=== PATIENT | male | born 1975 ===

== ENCOUNTER 2018-05-07 11:58 | Emergency (ER) | payer OTHER ==
[2018-05-07 12:05] VITALS: PULSE 105; RESP 19; TEMP 97.6; O2SAT 100
[2018-05-07] MEDS ORDERED: Lactated Ringer's 1,000 ML IVB ONE (13:17)
[2018-05-07] MEDS ORDERED: Lactated Ringer's 1,000 ML ONE (13:39)
[2018-05-07 13:44] VITALS: BP 129/83
[2018-05-07 13:53] LABS: BASO % 0.4 % (0.0-2.0); EOS % 0.3 % (0.0-4.0); HEMOGLOBIN 15.8 g/dL (12.0-18.0); LYMPH # 1.6 K/uL (1.0-4.3); LYMPH % 19.5 % (20.0-40.0); MEAN CELL VOLUME 90.2 fL (80.0-94.0); MEAN CORPUSCULAR HEMOGLOBIN 30.5 pg (27.0-31.0); MEAN CORPUSCULAR HGB CONC 33.9 g/dL (33.0-37.0); MEAN PLATELET VOLUME 8.5 fL (7.2-11.7); MONO # 0.5 K/uL (0.0-0.8); MONO % 6.7 % (0.0-10.0); NEUT # 5.9 K/uL (1.8-7.0); NEUT % 73.1 % (50.0-75.0); NRBC % 0.1 % (0.0-2.0); RBC 5.18 Mil/uL (4.40-5.90); RED CELL DISTRIBUTION WIDTH 13.5 % (11.5-14.5); WHITE BLOOD COUNT 8.1 K/uL (4.8-10.8)
[2018-05-07 13:56] LABS: ALB/GLOB RATIO 1.3 (1.0-2.1); ALBUMIN 4.7 g/dL (3.5-5.0); ALT/SGPT 39 U/L (21-72); AST/SGOT 32 U/L (17-59); BLOOD UREA NITROGEN 10 mg/dL (9-20); CALCIUM 9.4 mg/dl (8.6-10.4); GFR AFRICAN-AMERICAN > 60; GFR NON-AFRICAN AMERICAN > 60
--- NOTE | 2018-05-07 14:17 | C.PDOC ---
Time Seen by Provider: 05/07/18 13:08 Chief Complaint (Nursing): Dizziness/Lightheaded History Per: Patient, Family Onset/Duration Of Symptoms: Hrs (since this morning), Intermittent Episodes Current Symptoms Are (Timing): Still Present Associated Symptoms Preceding Syncopal Episode: Vertigo Worse With Change In Head Position Possible Causative Factor(s): Vertigo Fall Associated With With Symptoms: No Severity: Moderate Additional History Per: Prior Records - Symptoms Of CVA Associated Symptoms: denies: Impaired Speech, Seizure Activity, New Vision Deficit(Left), New Vision Deficit(Right), Decreased Ability To Walk, New Confusion Recent Head Trauma: No Past Medical History Reviewed: Historical Data, Nursing Documentation, Vital Signs Vital Signs: Last Vital Signs Temp 97.6 F 05/07/18 12:04 Pulse 105 H 05/07/18 12:04 Resp 19 05/07/18 12:04 BP 129/83 05/07/18 13:44 Pulse Ox 100 05/07/18 12:04 - Medical History PMH: Hyperlipidemia Surgical History: No Surg Hx Family History: States: Unknown Family Hx - Social History Hx Tobacco Use: No Hx Alcohol Use: No Hx Substance Use: No - Immunization History Hx Tetanus Toxoid Vaccination: No Hx Influenza Vaccination: No Hx Pneumococcal Vaccination: No Review Of Systems Except As Marked, All Systems Reviewed And Found Negative. Constitutional: Negative for: Fever, Weakness Eyes: Negative for: Vision Change ENT: Negative for: Ear Pain, Ear Discharge Cardiovascular: Negative for: Chest Pain Respiratory: Negative for: Shortness of Breath Gastrointestinal: Negative for: Vomiting, Abdominal Pain Musculoskeletal: Negative for: Neck Pain, Back Pain, Leg Pain Skin: Negative for: Rash Neurological: Positive for: Dizziness. Negative for: Weakness, Numbness, Incoordination, Change in Speech, Confusion, Seizures, Altered Mental Status, Headache Physical Exam - Physical Exam Appears: Non-toxic, No Acute Distress Skin: Normal Color, Warm, Dry, No Rash Head: Atraumatic, Normacephalic Eye(s): bilateral: Normal Inspection, PERRL, EOMI Ear(s): Bilateral: Normal Neck: Normal ROM, Supple Cardiovascular: Rhythm Regular Respiratory: Normal Breath Sounds, No Accessory Muscle Use Gastrointestinal/Abdominal: Soft, No Tenderness Back: No CVA Tenderness Extremity: Normal ROM, No Pedal Edema, No Calf Tenderness Neurological/Psych: Oriented x3, Normal Speech, Normal Cognition, No Cerebellar Signs, Normal Motor, Normal Sensation Gait: Steady ED Course And Treatment - Laboratory Results Result Diagrams: 05/07/18 13:37 05/07/18 13:37 Lab Interpretation: No Acute Changes O2 Sat by Pulse Oximetry: 100 Pulse Ox Interpretation: Normal Progress Note: Pt feels much better and wants to go home. Dizziness resolved. Reassessment Condition: Improved Progress - Interventions Interventions:: Observation, Intravenous fluid - Medications Administered Oral: Other (Meclizine) - Data Reviewed Data Reviewed: Lab, Old records - Patient Status Patient status: Completely improved - Continuity of Care Discussed patient case with:: Patient, ED Nurse - Patient Plan Patient Plan: Discharge, F/U with PCP, Continue present meds Disposition Counseled Patient/Family Regarding: Studies Performed, Diagnosis, Need For Followup, Rx Given - Disposition Referrals: Cr Guardado MD [Staff Provider] - Disposition: HOME/ ROUTINE Disposition Time: 14:19 Condition: IMPROVED Additional Instructions: Follow up with your doctor for further evaluation and treatment. Return to the ER if you develop weakness, numbness, vomiting, trouble walking, worsening of symptoms or if you have any other concerns. Prescriptions: Meclizine [Meclizine*] 25 mg PO Q6 PRN #30 tab PRN Reason: Dizziness Instructions: Vertigo (a Type of Dizziness) (DC) Print Language: PORTUGUESE - Clinical Impression Clinical Impression: Dizziness
--- NOTE | 2018-05-08 12:40 | CARD ---
APPROVED REPORT Date of service: 05/07/2018 EKG Measurement Heart [id number] <Conclusion> Sinus tachycardia Nonspecific T wave abnormality Abnormal ECG
== END 2018-05-07 14:37 | disposition home or self-care (01) ==
LOC: C.ER 11:58
DX: R42 Dizziness and giddiness (principal)
CPT/HCPCS: 80053; 83735; 84484; 85025; 93005; 99285; J7120

== ENCOUNTER 2018-05-14 12:09 | Observation (INO) | payer OTHER ==
[2018-05-14 14:38] LABS: BASO % 0.6 % (0.0-2.0); EOS % 0.4 % (0.0-4.0); HEMOGLOBIN 16.6 g/dL (12.0-18.0); LYMPH # 2.3 K/uL (1.0-4.3); LYMPH % 37.7 % (20.0-40.0); MEAN CELL VOLUME 89.5 fL (80.0-94.0); MEAN CORPUSCULAR HGB CONC 33.5 g/dL (33.0-37.0); MEAN PLATELET VOLUME 7.9 fL (7.2-11.7); MONO # 0.4 K/uL (0.0-0.8); MONO % 6.2 % (0.0-10.0); NEUT # 3.4 K/uL (1.8-7.0); NEUT % 55.1 % (50.0-75.0); NRBC % 0.1 % (0.0-2.0); RBC 5.54 Mil/uL (4.40-5.90); RED CELL DISTRIBUTION WIDTH 13.6 % (11.5-14.5); WHITE BLOOD COUNT 6.2 K/uL (4.8-10.8)
[2018-05-14 15:04] LABS: B-TYPE NATRIURETIC PEPTIDE 18.4 pg/mL (0-450); CK-MB 0.72 ng/mL (0.0-3.38)
--- NOTE | 2018-05-14 15:08 | C.PDOC ---
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 Patient describes the dizziness as a lightheadedness associated with shortness of breath as if "he is going to pass out". Denies vertigo. Patient took 25 mg Meclizine (QID) at 7:30 am, but did not take his medication at 1:00pm. He reports going to his PCP, but left the office due to worsening dizziness. He denies any recent falls, nausea, vomiting, weakness, fever, chills or any other associated symptoms. Time Seen by Provider: 05/14/18 14:09 Chief Complaint (Nursing): Dizziness/Lightheaded History Per: Patient History/Exam Limitations: no limitations Onset/Duration Of Symptoms: Hrs Current Symptoms Are (Timing): Still Present Associated Symptoms Preceding Syncopal Episode: Lightheadedness Seizure Or Post-ictal Symptoms: None Possible Causative Factor(s): denies: Vertigo Fall Associated With With Symptoms: No Severity: Mild Past Medical History Reviewed: Historical Data, Nursing Documentation, Vital Signs Vital Signs: Last Vital Signs Temp 98.7 F 05/14/18 15:03 Pulse 74 05/14/18 15:03 Resp 20 05/14/18 15:03 BP 124/84 05/14/18 15:03 Pulse Ox 98 05/14/18 15:25 - Medical History PMH: Hyperlipidemia Surgical History: No Surg Hx Family History: States: Unknown Family Hx - Social History Hx Tobacco Use: No Hx Alcohol Use: No Hx Substance Use: No - Immunization History Hx Tetanus Toxoid Vaccination: No Hx Influenza Vaccination: No Hx Pneumococcal Vaccination: No Review Of Systems Constitutional: Negative for: Fever, Chills Cardiovascular: Positive for: Light Headedness. Negative for: Palpitations Respiratory: Positive for: Shortness of Breath. Negative for: Cough Gastrointestinal: Negative for: Nausea, Vomiting, Abdominal Pain Neurological: Positive for: Dizziness. Negative for: Weakness, Numbness, Headache Physical Exam - Physical Exam Additional Physical Exam Comments: Constitutional: No acute distress. Head: Normocephalic. Atraumatic. Eyes: PERRL. ENT: Moist mucous membranes. Neck: Supple. Cardiovascular: Regular rate. Radial pulse 2+ bilaterally. Chest: No tenderness. Respiratory: Clear to auscultation bilaterally. GI: Soft. Nontender. Nondistended. Back: No CVA tenderness. Musculoskeletal: No tenderness or swelling of extremities. Skin: No rash. Neurologic: Alert, no focal deficit. Romberg negative. Finger to nose, heel to weathers, and rapid alternating movements normal. ED Course And Treatment - Laboratory Results Result Diagrams: 05/14/18 14:34 05/14/18 14:34 O2 Sat by Pulse Oximetry: 98 (RA) Pulse Ox Interpretation: Normal Medical Decision Making Medical Decision Making: Impression: 42 year male patient with dizziness associated with lightheadedness and SOB. Differential Diagnosis included but are not limited to: Rule out syncope Plan: CXR, Labs and EKG EK BPM. Normal Sinus Rhythm. No ST elevation. No T wave inversions. Normal intervals. CXR IMPRESSION:No active disease. No interval pathology noted Fails [place] Syncope rules. Dr. Guardado PMD accepts patient to his service. Disposition Discussed With : Cr Guardado Doctor Will See Patient In The: Hospital - Disposition Disposition: HOSPITALIZED Disposition Time: 15:00 Condition: FAIR Forms: Ver[employer]Show (Cypriot) - Clinical Impression Clinical Impression: Near syncope - Scribe Statement The provider has reviewed the documentation as recorded by the Chris Pantoja Provider Attestation: All medical record entries made by the Chris were at my direction and personally dictated by me. I have reviewed the chart and agree that the record accurately reflects my personal performance of the history, physical exam, medical decision making, and the department course for this patient. I have also personally directed, reviewed, and agree with the discharge instructions and disposition.
--- NOTE | 2018-05-14 15:12 | RAD ---
Date of service: 05/14/2018 HISTORY: near syncope COMPARISON: 07/25/2016 TECHNIQUE: Chest PA and lateral FINDINGS: LUNGS: No active pulmonary disease. PLEURA: No significant pleural effusion identified. No pneumothorax apparent. CARDIOVASCULAR: Normal. OSSEOUS STRUCTURES: No significant abnormalities. VISUALIZED UPPER ABDOMEN: Normal. OTHER FINDINGS: None. IMPRESSION: No active disease. No interval pathology noted
[2018-05-14 15:18] LABS: ALB/GLOB RATIO 1.3 (1.0-2.1); ALBUMIN 4.9 g/dL (3.5-5.0); ALT/SGPT 62 U/L (21-72); AST/SGOT 40 U/L (17-59); BLOOD UREA NITROGEN 7 mg/dL (9-20); CALCIUM 9.5 mg/dl (8.6-10.4); GFR NON-AFRICAN AMERICAN > 60
--- NOTE | 2018-05-15 00:13 | CARD ---
APPROVED REPORT Date of service: 05/14/2018 EKG Measurement Heart [id number] <Conclusion> Normal sinus rhythm Normal ECG
--- NOTE | 2018-05-15 07:16 | CP.PCM.CON ---
History of Present Illness - History of Present Illness History of Present Illness: CONSULT DICTATED REC EPISODES OF DIZZINESS NO ASSOCIATION WITH CENTRAL AND PERIPHERAL SYMPTOMS NO LONG TRACT SIGNS CHECK MRI BRAIN / CAROTID IF ALL NEGATIVE - F/U AN OP HYDRATION Past Patient History - Infectious Disease Hx of Infectious Diseases: None - Past Social History Smoking Status: Never Smoked - PSYCHIATRIC Hx Substance Use: No - SURGICAL HISTORY Hx Surgeries: Yes Hx Herniorrhaphy: Yes - ANESTHESIA Hx Anesthesia: Yes Hx Anesthesia Reactions: No Meds Allergies/Adverse Reactions: Allergies Allergy/AdvReac Type Severity Reaction Status Date / Time No Known Allergies Allergy Verified 05/14/18 12:20 - Medications Medications: Current Medications Meclizine HCl (Antivert) 25 mg PO Q8 PRN PRN Reason: Dizziness Last Admin: 05/14/18 22:25 Dose: 25 mg Results - Vital Signs Recent Vital Signs: Last Vital Signs Temp 97.9 F 05/14/18 23:15 Pulse 61 05/15/18 04:12 Resp 20 05/14/18 23:15 BP 130/79 05/14/18 23:15 Pulse Ox 98 05/14/18 23:15 - Labs Result Diagrams: 05/14/18 14:34 05/14/18 14:34 Labs: Laboratory Results - last 24 hr 05/14/18 05/14/18 14:34 14:34 WBC 6.2 RBC 5.54 Hgb 16.6 Hct 49.6 MCV 89.5 MCH 30.0 MCHC 33.5 RDW 13.6 Plt Count 272 MPV 7.9 Neut % (Auto) 55.1 Lymph % (Auto) 37.7 [place] % (Auto) 6.2 Eos % (Auto) 0.4 Baso % (Auto) 0.6 Neut # (Auto) 3.4 Lymph # (Auto) 2.3 [place] # (Auto) 0.4 Eos # (Auto) 0.0 Baso # (Auto) 0.0 Sodium 144 Potassium 4.4 Chloride 104 Carbon Dioxide 28 Anion Gap 16 BUN 7 L Creatinine 0.9 Est GFR ( Amer) > 60 Est GFR (Non-Af Amer) > 60 Random Glucose 116 H Calcium 9.5 Total Bilirubin 1.0 AST 40 ALT 62 Alkaline Phosphatase 78 Total Creatine Kinase 140 CK-MB (Mass) 0.72 Troponin I < 0.0120 NT-Pro-B Natriuret Pep 18.4 Total Protein 8.7 H Albumin 4.9 Globulin 3.8 Albumin/Globulin Ratio 1.3
[2018-05-15 08:30] LABS: BASO % 0.7 % (0.0-2.0); EOS # 0.1 K/uL (0.0-0.7); EOS % 1.3 % (0.0-4.0); HEMOGLOBIN 16.5 g/dL (12.0-18.0); LYMPH # 2.7 K/uL (1.0-4.3); LYMPH % 42.3 % (20.0-40.0); MEAN CELL VOLUME 90.3 fL (80.0-94.0); MEAN CORPUSCULAR HEMOGLOBIN 30.8 pg (27.0-31.0); MEAN CORPUSCULAR HGB CONC 34.2 g/dL (33.0-37.0); MEAN PLATELET VOLUME 8.6 fL (7.2-11.7); MONO # 0.6 K/uL (0.0-0.8); MONO % 8.7 % (0.0-10.0); NRBC % 0.2 % (0.0-2.0); RBC 5.35 Mil/uL (4.40-5.90); RED CELL DISTRIBUTION WIDTH 13.6 % (11.5-14.5); WHITE BLOOD COUNT 6.4 K/uL (4.8-10.8)
[2018-05-15 08:46] LABS: ALB/GLOB RATIO 1.2 (1.0-2.1); ALBUMIN 4.5 g/dL (3.5-5.0); ALT/SGPT 52 U/L (21-72); AST/SGOT 33 U/L (17-59); BLOOD UREA NITROGEN 9 mg/dL (9-20); CALCIUM 9.1 mg/dl (8.6-10.4); GFR NON-AFRICAN AMERICAN > 60
[2018-05-15] MEDS ORDERED: Gadodiamide 287 mg/ml 20 ml IV ONE (08:55)
--- NOTE | 2018-05-15 13:03 | CP.PCM.HP ---
History of Present Illness - History of Present Illness History of Present Illness: 42 years old male with no significant PMH who presents to ED complaining of dizziness associated with near-syncope. Patient denies headache, chest pain, shortness of breath, vomiting, abdominal pain or urinary symptoms. Present on Admission - Present on Admission Any Indicators Present on Admission: No Review of Systems - EENT Ears: Dizziness - Neurological Neurological: Dizziness Past Patient History - Infectious Disease Hx of Infectious Diseases: None - Past Social History Smoking Status: Never Smoked - PSYCHIATRIC Hx Substance Use: No - SURGICAL HISTORY Hx Surgeries: Yes Hx Herniorrhaphy: Yes - ANESTHESIA Hx Anesthesia: Yes Hx Anesthesia Reactions: No Meds Allergies/Adverse Reactions: Allergies Allergy/AdvReac Type Severity Reaction Status Date / Time No Known Allergies Allergy Verified 05/14/18 12:20 Physical Exam - Constitutional Appears: Well, Non-toxic, No Acute Distress - Head Exam Head Exam: ATRAUMATIC, NORMAL INSPECTION, NORMOCEPHALIC - Eye Exam Eye Exam: EOMI, Normal appearance, PERRL - ENT Exam ENT Exam: Mucous Membranes Moist, Normal Exam - Neck Exam Neck exam: Positive for: Full Rom, Normal Inspection - Respiratory Exam Respiratory Exam: Clear to Auscultation Bilateral, NORMAL BREATHING PATTERN - Cardiovascular Exam Cardiovascular Exam: REGULAR RHYTHM, +S1, +S2 - GI/Abdominal Exam GI & Abdominal Exam: Normal Bowel Sounds, Soft - Extremities Exam Extremities exam: Positive for: full ROM, normal inspection - Back Exam Back exam: NORMAL INSPECTION - Neurological Exam Neurological exam: Alert, CN II-XII Intact, Normal Gait, Oriented x3, Reflexes Normal - Psychiatric Exam Psychiatric exam: Normal Affect, Normal Mood - Skin Skin Exam: Intact, Normal Color Results - Vital Signs Recent Vital Signs: Last Vital Signs Temp 97.5 F L 05/15/18 07:00 Pulse 70 05/15/18 11:35 Resp 18 05/15/18 07:00 BP 120/81 05/15/18 07:00 Pulse Ox 95 05/15/18 07:00 - Labs Result Diagrams: 05/15/18 08:19 05/15/18 08:19 Labs: Laboratory Results - last 24 hr 05/14/18 05/14/18 05/15/18 14:34 14:34 08:19 WBC 6.2 6.4 RBC 5.54 5.35 Hgb 16.6 16.5 Hct 49.6 48.3 MCV 89.5 90.3 MCH 30.0 30.8 MCHC 33.5 34.2 RDW 13.6 13.6 Plt Count 272 279 MPV 7.9 8.6 Neut % (Auto) 55.1 47.0 L Lymph % (Auto) 37.7 42.3 H [place] % (Auto) 6.2 8.7 Eos % (Auto) 0.4 1.3 Baso % (Auto) 0.6 0.7 Neut # (Auto) 3.4 3.0 Lymph # (Auto) 2.3 2.7 [place] # (Auto) 0.4 0.6 Eos # (Auto) 0.0 0.1 Baso # (Auto) 0.0 0.0 Sodium 144 Potassium 4.4 Chloride 104 Carbon Dioxide 28 Anion Gap 16 BUN 7 L Creatinine 0.9 Est GFR ( Amer) > 60 Est GFR (Non-Af Amer) > 60 Random Glucose 116 H Calcium 9.5 Total Bilirubin 1.0 AST 40 ALT 62 Alkaline Phosphatase 78 Total Creatine Kinase 140 CK-MB (Mass) 0.72 Troponin I < 0.0120 NT-Pro-B Natriuret Pep 18.4 Total Protein 8.7 H Albumin 4.9 Globulin 3.8 Albumin/Globulin Ratio 1.3 05/15/18 08:19 WBC RBC Hgb Hct MCV MCH MCHC RDW Plt Count MPV Neut % (Auto) Lymph % (Auto) [place] % (Auto) Eos % (Auto) Baso % (Auto) Neut # (Auto) Lymph # (Auto) [place] # (Auto) Eos # (Auto) Baso # (Auto) Sodium 142 Potassium 3.9 Chloride 103 Carbon Dioxide 24 Anion Gap 19 BUN 9 Creatinine 0.9 Est GFR ( Amer) > 60 Est GFR (Non-Af Amer) > 60 Random Glucose 138 H Calcium 9.1 Total Bilirubin 1.4 H AST 33 ALT 52 Alkaline Phosphatase 75 Total Creatine Kinase CK-MB (Mass) Troponin I NT-Pro-B Natriuret Pep Total Protein 8.2 Albumin 4.5 Globulin 3.7 Albumin/Globulin Ratio 1.2 Assessment & Plan (1) Near syncope Assessment and Plan: ECG. CBC Diff. CMP. CXR. Cardiac Enzymes. MRI of the Brain. US of Carotid Arteries. Neurology evaluation. Meclizine PRN. Status: Acute Priority: High
--- NOTE | 2018-05-15 14:11 | VASCLAB ---
Date of service: 05/15/2018 PROCEDURE: HISTORY: Syncope COMPARISON: None available. TECHNIQUE: Grayscale and duplex Doppler evaluation of the cervical carotid and vertebral arteries were performed. The common carotid, carotid bifurcations and cervical Internal Carotid Artery (ICA) and proximal External Carotid Artery (ECA) were evaluated. The vertebral arteries were evaluated for gross patency and flow direction. Report prepared by ADRIANA Rodriguez FINDINGS: RIGHT CAROTID ARTERIES: 1. Common Carotid Artery: No significant focal plaque formation of the right common carotid artery. Maximum Peak Systolic velocity: 76 cm/sec: End-diastolic velocity 19 cm/sec. 2. Carotid Bifurcation: plaque formation. Maximum Peak Systolic velocity: 58 cm/sec: End-diastolic velocity 19 cm/sec. 3. Internal Carotid Artery: Plaque description: 3.1. Proximal Segment: Peak systolic velocity 48 cm/sec: End-diastolic velocity 22 cm/sec - % stenosis 0-15% 3.2. Middle Segment: Peak systolic velocity 68 cm/sec: End-diastolic velocity 29 cm/sec - % stenosis 0-15% 3.3. Distal Segment: Peak systolic velocity 73 cm/sec: End-diastolic velocity 29 cm/sec - % stenosis 0-15% 4. External Carotid Artery: No significant focal plaque formation. Peak systolic velocity 79 cm/sec 5. ICA/CCA Ratio: 1.0 LEFT CAROTID ARTERIES: 1. Common Carotid Artery: No significant focal plaque formation of the left common carotid artery. Maximum Peak Systolic velocity: 77 cm/sec: End-diastolic velocity 19 cm/sec. 2. Carotid Bifurcation: plaque formation. Maximum Peak Systolic velocity: 58 cm/sec: End-diastolic velocity 18 cm/sec. 3. Internal Carotid Artery: Plaque description: 3.1. Proximal Segment: Peak systolic velocity 57 cm/sec: End-diastolic velocity 26 cm/sec - % stenosis 0-15% 3.2. Middle Segment: Peak systolic velocity 55 cm/sec: End-diastolic velocity 24 cm/sec - % stenosis 0-15% 3.3. Distal Segment: Peak systolic velocity 79 cm/sec: End-diastolic velocity 33 cm/sec - % stenosis 0-15% 4. External Carotid Artery: No significant focal plaque formation. Peak systolic velocity 58 cm/sec 5. ICA/CCA Ratio: 1.1 VERTEBRAL ARTERIES: 1. Right Vertebral Artery: The right vertebral artery flow direction is antegrade. 2. Left Vertebral Artery: The left vertebral artery flow direction is antegrade. OTHER FINDINGS: 1. Right Brachial Blood pressure: 120/70 mmHg. 2. Left Brachial Blood pressure: 100/60 mmHg. IMPRESSION: RIGHT: Duplex scan does not suggest hemodynamically significant stenosis of the right extracranial carotid arteries. LEFT: Duplex scan does not suggest hemodynamically significant stenosis of the left extracranial carotid arteries.
--- NOTE | 2018-05-15 18:18 | CON ---
Copied To: Manuel Lloyd MD Attending MD: Cr Guardado MD DATE: 05/15/2018 LOCATION: The patient is in room number 652, bed B. REASON FOR THE CONSULTATION: Dizziness. CHIEF COMPLAINT: Mr. Lucas Bruno is a 42-year-old right-handed Turkish-speaking male presenting with episodic dizziness for the last one month. From neurological point of view, I was called in to evaluate him for further management. HISTORY OF PRESENT ILLNESS: Mr. Lucas Bruno is a 42-year-old right-handed Turkish-speaking male presenting with dizziness for the last one month. This dizziness is episodic in nature, lasted for about a minute or so. Not associating with losing balance, visual or bulbar dysfunction. No history of vision loss. No history of hearing problem. No history of viral illness or recent travel. The patient was seen by his primary care physician as outpatient. Symptomatic treatment, which was not helping him that made him to come to the hospital for further management. PAST MEDICAL HISTORY: Unremarkable. PERSONAL HISTORY: No history of smoking or alcohol use. 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 REVIEW OF SYSTEMS: A 12-point system being reviewed. From Neuro, recurrent dizziness. MEDICATIONS: Meclizine. PHYSICAL EXAMINATION: VITAL SIGNS: Blood pressure 130/79, mean arterial pressure of 96, respiratory rate 18, pulse rate 65 regular, temperature 97.9 Fahrenheit. NECK: Supple. No carotid bruits. HEART: Sounds regular. CHEST: Fair air entry. EXTREMITIES: No edema in legs. NEUROLOGICAL EXAMINATION: The patient is awake, alert and oriented to person, place and time. His speech is clear. Naming, repetition, fluency, comprehension all within normal. Cranial nerve examination, visual field intact. Pupil reactive to light. Extraocular movement normal. No nystagmus. No facial sensory deficit. No facial asymmetry. Hearing is normal. Tongue is midline. Good gag. Motor examination on outstretched hand with eyes closed, no drift noted. Power is symmetric on either side. Deep tendon reflexes biceps, brachialis, triceps, knee and ankle all are 3+. Plantars are downgoing. Sensory examination grossly intact. No cortical sensory loss. Cerebellar function, finger nose testing and [id number] is normal. Gait: No Romberg sign and tandem is fair. BLOOD WORKUP: WBC 6.2, hemoglobin 16.6, hematocrit 49.6, platelets 272. Sodium 144, potassium 4.4, chloride 104, bicarbonate 28, BUN 7, creatinine 0.9. GFR more than 60, glucose 116, troponin 0.0120. CONCLUSION: Mr. Lucas Bruno has been presenting with recurrent episodic dizziness, not associating with any long tract sign, which probably vestibular pathology. However, recurrent dizziness, central nervous system process should be ruled out including carotid artery pathology. The patient is advised to have a good hydration. Antivert can be given as a p.r.n. basis. He is recommended MRI of the brain and carotid Doppler. If all negative, the patient can be discharged and should have followup visit with me as outpatient for further management. The patient's condition has been well discussed. He agreed with my plan of management. Manuel Lloyd MD
[2018-05-15 22:26] LABS: URINE BACTERIA RARE (<OCC)
[2018-05-15 22:27] LABS: URINE BILIRUBIN NEGATIVE (NEGATIVE); URINE BLOOD NEGATIVE (NEGATIVE); URINE CLARITY Clear (Clear); URINE COLOR Yellow (YELLOW); URINE GLUCOSE (UA) NORMAL (Normal); URINE LEUKOCYTE ESTERASE NEG Leu/uL (Negative); URINE PROTEIN NEGATIVE (NEGATIVE); URINE UROBILINOGEN NORMAL mg/dL (0.2-1.0)
[2018-05-16 00:18] VITALS: RESP 20
[2018-05-17 01:37] VITALS: O2SAT 100
--- NOTE | 2018-05-17 02:18 | CARD ---
APPROVED REPORT Date of service: 05/15/2018 EKG Measurement Heart [id number] <Conclusion> Normal sinus rhythm Normal ECG
[2018-05-17 07:52] VITALS: BP 115/80; TEMP 98.4
--- NOTE | 2018-05-17 16:00 | CP.PCM.DIS ---
Provider - Provider Date of Admission: 05/14/18 15:57 Attending physician: rC Guardado MD Time Spent in preparation of Discharge (in minutes): 30 Diagnosis - Discharge Diagnosis (1) Near syncope Status: Acute Priority: High Hospital Course - Lab Results Lab Results: Most Recent Lab Values WBC 6.4 K/uL (4.8-10.8) 05/15/18 08:19 RBC 5.35 Mil/uL (4.40-5.90) 05/15/18 08:19 Hgb 16.5 g/dL (12.0-18.0) 05/15/18 08:19 Hct 48.3 % (35.0-51.0) 05/15/18 08:19 MCV 90.3 fL (80.0-94.0) 05/15/18 08:19 MCH 30.8 pg (27.0-31.0) 05/15/18 08:19 MCHC 34.2 g/dL (33.0-37.0) 05/15/18 08:19 RDW 13.6 % (11.5-14.5) 05/15/18 08:19 Plt Count 279 K/uL (130-400) 05/15/18 08:19 MPV 8.6 fL (7.2-11.7) 05/15/18 08:19 Neut % (Auto) 47.0 % (50.0-75.0) L 05/15/18 08:19 Lymph % (Auto) 42.3 % (20.0-40.0) H 05/15/18 08:19 Phelps % (Auto) 8.7 % (0.0-10.0) 05/15/18 08:19 Eos % (Auto) 1.3 % (0.0-4.0) 05/15/18 08:19 Baso % (Auto) 0.7 % (0.0-2.0) 05/15/18 08:19 Neut # (Auto) 3.0 K/uL (1.8-7.0) 05/15/18 08:19 Lymph # (Auto) 2.7 K/uL (1.0-4.3) 05/15/18 08:19 Phelps # (Auto) 0.6 K/uL (0.0-0.8) 05/15/18 08:19 Eos # (Auto) 0.1 K/uL (0.0-0.7) 05/15/18 08:19 Baso # (Auto) 0.0 K/uL (0.0-0.2) 05/15/18 08:19 Sodium 142 mmol/L (132-148) 05/15/18 08:19 Potassium 3.9 mmol/L (3.6-5.2) 05/15/18 08:19 Chloride 103 mmol/L (98-107) 05/15/18 08:19 Carbon Dioxide 24 mmol/L (22-30) 05/15/18 08:19 Anion Gap 19 (10-20) 05/15/18 08:19 BUN 9 mg/dL (9-20) 05/15/18 08:19 Creatinine 0.9 mg/dL (0.8-1.5) 05/15/18 08:19 Est GFR ( Amer) > 60 05/15/18 08:19 Est GFR (Non-Af Amer) > 60 05/15/18 08:19 Random Glucose 138 mg/dL (75-110) H 05/15/18 08:19 Calcium 9.1 mg/dl (8.6-10.4) 05/15/18 08:19 Total Bilirubin 1.4 mg/dL (0.2-1.3) H 05/15/18 08:19 AST 33 U/L (17-59) 05/15/18 08:19 ALT 52 U/L (21-72) 05/15/18 08:19 Alkaline Phosphatase 75 U/L (38-126) 05/15/18 08:19 Total Creatine Kinase 140 U/L (55-170) 05/14/18 14:34 CK-MB (Mass) 0.72 ng/mL (0.0-3.38) 05/14/18 14:34 Troponin I < 0.0120 ng/mL (0.00-0.120) 05/14/18 14:34 NT-Pro-B Natriuret Pep 18.4 pg/mL (0-450) 05/14/18 14:34 Total Protein 8.2 g/dL (6.3-8.3) 05/15/18 08:19 Albumin 4.5 g/dL (3.5-5.0) 05/15/18 08:19 Globulin 3.7 gm/dL (2.2-3.9) 05/15/18 08: Albumin/Globulin Ratio 1.2 (1.0-2.1) 05/15/18 08:19 Urine Color Yellow (YELLOW) 05/15/18 22:13 Urine Clarity Clear (Clear) 05/15/18 22:13 Urine pH 6.0 (5.0-8.0) 05/15/18 22:13 Ur Specific [place] 1.020 (1.003-1.030) 05/15/18 22:13 Urine Protein Negative mg/dL (NEGATIVE) 05/15/18 22:13 Urine Glucose (UA) Normal mg/dL (Normal) 05/15/18 22:13 Urine Ketones Negative mg/dL (NEGATIVE) 05/15/18 22:13 Urine Blood Negative (NEGATIVE) 05/15/18 22:13 Urine Nitrate Negative (NEGATIVE) 05/15/18 22:13 Urine Bilirubin Negative (NEGATIVE) 05/15/18 22:13 Urine Urobilinogen Normal mg/dL (0.2-1.0) 05/15/18 22:13 Ur Leukocyte Esterase Neg Bl[place]/uL (Negative) 05/15/18 22:13 Urine WBC (Auto) < 1 /hpf (0-5) 05/15/18 22:13 Urine RBC (Auto) 3 /hpf (0-3) 05/15/18 22:13 Urine Bacteria Rare (<OCC) 05/15/18 22:13 - Hospital Course Hospital Course: 42 years old male with no significant PMH admitted for evaluation of Dizziness and Near-Syncope. ECG showed no abnormalities. First set of Cardiac Ezymes was within normal limits, patient has no major Cardiac risk factors. Neurology consult requested. US of Carotid Arteries within normal limits. MRI of the Brain showed no evidence of mass, hemorrhage or infarct. Patient was discharge home in stable condition. Patient must follow up with [facility] and ENT. . Discharge Exam - Head Exam Head Exam: ATRAUMATIC, NORMAL INSPECTION, NORMOCEPHALIC - Eye Exam Eye Exam: EOMI, Normal appearance, PERRL - Respiratory Exam Respiratory Exam: Clear to PA & Lateral, NORMAL BREATHING PATTERN, UNREMARKABLE - Cardiovascular Exam Cardiovascular Exam: REGULAR RHYTHM, +S1, +S2 - GI/Abdominal Exam GI & Abdominal Exam: Normal Bowel Sounds, Unremarkable - Extremities Exam Extremities exam: full ROM, normal capillary refill - Neurological Exam Neurological exam: Alert, CN II-XII Intact, Normal Gait, Oriented x3, Reflexes Normal Discharge Plan - Follow Up Plan Condition: GOOD
--- NOTE | 2018-05-17 16:04 | CP.PCM.PN ---
Subjective - Date & Time of Evaluation Date of Evaluation: 05/16/18 Time of Evaluation: 12:00 - Subjective Subjective: Patient denies dizziness. Objective - Vital Signs/Intake and Output Vital Signs (last 24 hours): Temp Pulse Resp BP Pulse Ox 98.4 F 71 20 115/80 100 05/17/18 07:00 05/17/18 12:00 05/17/18 07:00 05/17/18 07:00 05/17/18 07:00 Intake and Output: 05/17/18 05/17/18 06:59 18:59 Intake Total 120 Balance 120 - Medications Medications: Current Medications Meclizine HCl (Antivert) 25 mg PO Q8 PRN PRN Reason: Dizziness Last Admin: 05/16/18 12:16 Dose: 25 mg - Labs Labs: 05/15/18 08:19 05/15/18 08:19 - Head Exam Head Exam: ATRAUMATIC, NORMAL INSPECTION, NORMOCEPHALIC - Neck Exam Neck Exam: Full ROM, Normal Inspection - Respiratory Exam Respiratory Exam: Clear to Ausculation Bilateral, NORMAL BREATHING PATTERN - Cardiovascular Exam Cardiovascular Exam: REGULAR RHYTHM, +S1, +S2 - GI/Abdominal Exam GI & Abdominal Exam: Soft, Normal Bowel Sounds - Extremities Exam Extremities Exam: Full ROM, Normal Inspection - Neurological Exam Neurological Exam: Alert, Awake, CN II-XII Intact, Normal Gait, Oriented x3 Assessment and Plan (1) Near syncope Assessment & Plan: Continue same treatment. Awaiting MRI of the Brain report. Status: Acute
[2018-05-17 17:13] VITALS: PULSE 69
--- NOTE | 2018-05-21 14:06 | MRI ---
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 TECHNIQUE: Multiplanar, multisequence MR images of the brain were obtained with and without intravenous contrast enhancement. 16 cc Omniscan contrast material injected for this examination. FINDINGS: HEMORRHAGE: No acute parenchymal, subarachnoid or extra-axial hemorrhage. No evidence hemosiderin deposition identified on gradient echo weighted sequence. DWI: No evidence of an acute or early subacute infarction seen on diffusion imaging. . BRAIN PARENCHYMA: No mass,mass effect or edema. No atrophy or chronic microvascular ischemic changes. Ventricular and sulcal size are within range of normal for this patient's stated age ENHANCEMENT: No abnormal intracranial enhancement. VENTRICLES: No obstructive hydrocephalus. CRANIUM: Unremarkable. ORBITS: Orbits and contents unremarkable. PARANASAL SINUSES/MASTOIDS: Clear VASCULAR SYSTEM: Visualized major vascular flow voids at skull base patent OTHER FINDINGS: None . IMPRESSION: No evidence of acute intracranial hemorrhage or infarct. No enhancing lesions seen.
== END 2018-05-17 18:57 | disposition home or self-care (01) ==
LOC: C.ER 12:09 → C.9E 15:57 → C.6T 19:00 → C.9E 19:01 → C.6T 19:37
PROVIDERS: ADMIT Internal Medicine; ATTEND Internal Medicine
DX: R55 Syncope and collapse (principal); E78.5 Hyperlipidemia, unspecified; I10 Essential (primary) hypertension
CPT/HCPCS: 36415; 70553; 71046; 80053; 81001; 82550; 82553; 83880; 84484; 85025; 93005; 93880; 99285; A9579; G0378

== ENCOUNTER 2018-05-18 01:12 | Emergency (ER) | payer SELFPAY ==
[2018-05-18 01:32] VITALS: O2SAT 98
--- NOTE | 2018-05-18 01:33 | C.PDOC ---
History Of Present Illness 42 year old male presents to the ER with a complaint of dizziness, weakness to bilateral knees, and numbness to the left arm after he woke up to go to the bathroom tonight. Patient has been seen twice for dizziness this month, he was discharged yesterday after recently being admitted on 05/14/18, he had an extensive workup which included a negative MRI, cardiac workup, and neuro workup. He was seen by Dr. Lloyd and was discharged with ENT and cardiology follow up. Patient reports symptoms have improved on arrival. Denies chest pain , SOB, nausea, or vomiting. Chief Complaint (Nursing): Weakness/Neurological Deficit History Per: Patient History/Exam Limitations: no limitations Onset/Duration Of Symptoms: Hrs Current Symptoms Are (Timing): Gone Activity At Onset Of Symptoms: Standing Seizure Or Post-ictal Symptoms: None Possible Causative Factor(s): Other (Not known) Fall Associated With With Symptoms: No Recent travel outside of the [place]: No - Symptoms Of CVA Associated Symptoms: denies: Impaired Speech, Seizure Activity, New Vision Deficit(Left), New Vision Deficit(Right), Decreased Ability To Walk, New Confusion Past Medical History Reviewed: Historical Data, Nursing Documentation, Vital Signs Vital Signs: Last Vital Signs Temp 98.2 F 05/18/18 03:08 Pulse 82 05/18/18 03:08 Resp 16 05/18/18 03:08 BP 123/85 05/18/18 03:08 Pulse Ox 98 05/18/18 04:44 - Medical History PMH: Anemia, Hyperlipidemia Family History: States: Unknown Family Hx - Social History Hx Tobacco Use: No Hx Alcohol Use: No Hx Substance Use: No - Immunization History Hx Tetanus Toxoid Vaccination: No Hx Influenza Vaccination: No Hx Pneumococcal Vaccination: No Review Of Systems Constitutional: Negative for: Fever, Chills Cardiovascular: Negative for: Chest Pain, Palpitations Respiratory: Negative for: Cough, Shortness of Breath Gastrointestinal: Negative for: Nausea, Vomiting Neurological: Positive for: Weakness (Bilateral knees), Numbness (Left arm), Dizziness Physical Exam - Physical Exam Appears: Non-toxic Skin: Normal Color, Warm, Dry Head: Atraumatic, Normacephalic Eye(s): bilateral: Normal Inspection, PERRL, EOMI Oral Mucosa: Moist Neck: Normal, No Midline Cervical Tenderness, No Paracervical Tenderness, Supple Chest: Symmetrical, No Tenderness Cardiovascular: Rhythm Regular Respiratory: Normal Breath Sounds, No Rales, No Rhonchi, No Wheezing Gastrointestinal/Abdominal: Soft, No Tenderness Back: No CVA Tenderness Extremity: Normal ROM (x4) Neurological/Psych: Oriented x3, Normal Speech, Normal Motor, Normal Sensation Gait: Steady ED Course And Treatment O2 Sat by Pulse Oximetry: 98 (Room air) Pulse Ox Interpretation: Normal - CT Scan/US CT head Other Rad Studies (CT/US): Read By Radiologist, Radiology Report Reviewed CT/US Interpretation: EXAM: CT Head Without Intravenous Contrast. EXAM DATE/ TIME: 05/18/2018 1:52 AM. CLINICAL HISTORY: 42 years old, male; Signs and symptoms; Dizziness; Additional info: Dizzy. TECHNIQUE: Axial computed tomography images of the head/brain without intravenous contrast. [address] are. submitted. All CT scans at this facility use at least one of these dose optimization techniques: automated. exposure control; mA and/or kV adjustment per patient size (includes targeted exams where dose is. matched to clinical indication); or iterative reconstruction. COMPARISON: MR - BRAIN W WO CONTRAST 05/15/2018 8:42 AM. FINDINGS: Brain: Normal. No hemorrhage. No significant white matter disease. No edema. Ventricles: Normal. No ventriculomegaly. Bones/joints: Normal. No acute fracture. Sinuses: Patchy sinus disease. Evidence of sinus surgery. Mastoid air cells: Normal as visualized. No mastoid effusion. Orbits: The globe and lens are intact. Soft tissues: Normal. IMPRESSION: No evidence of an acute intracranial hemorrhage, midline shift or mass effect is identified. Progress Note: CT head ordered, results were negative. Patient is resting comfortably in the ER in no acute distress with no neurological deficits, ambulatory, vitals are stable, will discharge home with instructions to follow up with ENT and neurologist. Disposition - Disposition Referrals: Manuel Lloyd MD [Staff Provider] - Skip Easton MD [Staff Provider] - Disposition: HOME/ ROUTINE Disposition Time: 02:56 Condition: STABLE Additional Instructions: Follow up with PMD, ENT specialist and Neurologist within 2-3 days. Return to ED if feel worse. Continue taking all medications as instructed. Instructions: Dizziness, Nonvertigo, (DC) Forms: [employer] (French) Print Language: DIVEHI - Clinical Impression Clinical Impression: Dizziness - PA / DRAWER IN JACQUARD LOOM / Resident Statement MD/DO has reviewed & agrees with the documentation as recorded. - Scribe Statement The provider has reviewed the documentation as recorded by the Kaykayibkait Castro All medical record entries made by the Chris were at my direction and personally dictated by me. I have reviewed the chart and agree that the record accurately reflects my personal performance of the history, physical exam, medical decision making, and the department course for this patient. I have also personally directed, reviewed, and agree with the discharge instructions and disposition.
[2018-05-18 03:09] VITALS: BP 123/85; PULSE 82; RESP 16; TEMP 98.2
--- NOTE | 2018-05-18 15:20 | CT ---
Date of service: 05/18/2018 PROCEDURE: CT HEAD WITHOUT CONTRAST. HISTORY: dizzy COMPARISON: Brain MRI with and without contrast 05/15/2018. TECHNIQUE: Axial computed tomography images were obtained through the head/brain without intravenous contrast. Radiation dose: Total exam DLP = 808.49 mGy-cm. This CT exam was performed using one or more of the following dose reduction techniques: Automated exposure control, adjustment of the mA and/or kV according to patient size, and/or use of iterative reconstruction technique. FINDINGS: HEMORRHAGE: No intracranial hemorrhage. BRAIN: Normal bee-white matter differentiation and density are appreciated throughout the cerebrum and cerebellum with the brainstem appearing unremarkable as well. There is no mass effect. There is no suspicious extra-axial fluid collection and the midline brain anatomy appears diffusely unremarkable. VENTRICLES: Unremarkable. No hydrocephalus. CALVARIUM: Unremarkable. PARANASAL SINUSES: Unremarkable as visualized. No significant inflammatory changes. MASTOID AIR CELLS: Unremarkable as visualized. No inflammatory changes. OTHER FINDINGS: None. IMPRESSION: Normal CT of the Head. No suspicious interval findings. Concordant preliminary report from [facility], 05/18/2018.
== END 2018-05-18 03:10 | disposition home or self-care (01) ==
LOC: C.ER 01:12
DX: R42 Dizziness and giddiness (principal); E78.5 Hyperlipidemia, unspecified

== ENCOUNTER 2018-10-12 10:10 | Outpatient (CLI) | payer SELFPAY | END 2018-10-12 10:11 | disposition home or self-care (01) | LOC: C.LAB 10:10 | DX: J32.9 Chronic sinusitis, unspecified (principal) ==

== ENCOUNTER 2018-10-23 09:47 | Outpatient (CLI) | payer OTHER, SELFPAY | END 2018-10-23 09:48 | disposition home or self-care (01) | LOC: C.MRIC 09:48 | DX: H91.90 Unspecified hearing loss, unspecified ear (principal) ==